=== PATIENT | female | born 1985 | race Caucasian/White ===

== ENCOUNTER 2017-12-11 08:15 | Inpatient (IN) | payer OTHER ==
[~2017-12-11] VITALS: Ht 168 cm; Wt 75.7 kg
[2017-12-11 09:02] VITALS: BP 109/74
[2017-12-11] MEDS ORDERED: FOLI0.4T4 PO (09:05)
[2017-12-11] MEDS ORDERED: PNV11TAB PO (09:05)
[2017-12-11] MEDS ORDERED: OXYTOCIN 30 UNITS/LACT RINGERS 500 ML IV PRN (09:55)
[2017-12-11] MEDS ORDERED: RINGERS SOLUTION,LACTATED 1,000 ML IV PRN (09:55)
[2017-12-11] MEDS ORDERED: OXYTOCIN 30 UNITS/LACT RINGERS 500 ML IV ONE (09:55)
[2017-12-11] MEDS ORDERED: FentaNYL CITRATE-PF 100 MCG/2 ML VIAL IVP PRN (10:00)
[2017-12-11] MEDS ORDERED: METOCLOPRAMIDE HCL 5 MG/ML 2 ML VIAL IVP PRN (10:00)
[2017-12-11] MEDS ORDERED: AZITHROMYCIN 500 MG/NS 250 ML IV ONE (10:00)
[2017-12-11] MEDS ORDERED: CITRIC ACID/SODIUM CITRATE 30 ML SOLUTION UDCUP PO PRN (10:00)
[2017-12-11] MEDS ORDERED: LIDOCAINE HCL/PF 1% 30 ML VIAL INJ PRN (10:00)
[2017-12-11] MEDS ORDERED: METHYLERGONOVINE MALEATE 0.2 MG/ML VIAL IM PRN (10:00)
[2017-12-11 10:31] LABS: BASOPHILS % (AUTO) 0.4 % (0.0-2.0); HEMATOCRIT 40.5 % (36-46); HEMOGLOBIN 13.8 g/dL (12.0-16.0); LYMPHOCYTES # (AUTO) 1.2 K/uL (1.0-4.8); LYMPHOCYTES % (AUTO) 19.8 % (22.0-44.0); MEAN CORPUSCULAR HEMOGLOBIN 30.6 pg (26.0-34.0); MEAN CORPUSCULAR HGB CONC 34.1 G/dL (31.0-37.0); MEAN CORPUSCULAR VOLUME 90 fL (80-100); MONOCYTES # (AUTO) 0.5 K/uL (0.1-1.0); MONOCYTES % (AUTO) 9.2 % (2.0-9.0); NEUTROPHILS # (AUTO) 4.1 K/uL (1.8-7.7); NEUTROPHILS % (AUTO) 68.6 % (40.0-70.0); PLATELET COUNT (AUTO)-OB 135 K/uL (150-450); RED BLOOD CELL COUNT(AUTO) 4.53 MIL/uL (4.00-5.20); RED CELL DISTRIBUTION WIDTH 14.6 % (11.5-14.5)
[2017-12-11] MEDS: RINGERS SOLUTION,LACTATED 1,000 ML IV SCH ×3 (11:04→20:17)
[2017-12-11] MEDS ORDERED: ROPIVACAINE HCL/PF 0.2% 100 ML ED ONE (16:00)
[2017-12-11] MEDS ORDERED: BUPIVACAINE HCL/PF 0.5% 10 ML VIAL ONE (16:00)
[2017-12-11] MEDS ORDERED: LIDOCAINE HCL/PF 2% 5 ML VIAL ONE (16:01)
[2017-12-11] MEDS ORDERED: ROPIVACAINE HCL/PF 0.2% 100 ML ED PRN (16:56)
[2017-12-11] MEDS ORDERED: NALBUPHINE HCL 10 MG/ML VIAL IVP PRN (17:00)
[2017-12-11] MEDS ORDERED: DiphenhydrAMINE HCL 50 MG/ML VIAL IVP PRN (17:00)
[2017-12-11] MEDS ORDERED: ONDANSETRON HCL 4 MG/2 ML VIAL IVP PRN (17:00)
[2017-12-11] MEDS ORDERED: OXYGEN THERAPY IH SCH (20:00)
[2017-12-12] MEDS ORDERED: ROPIVACAINE HCL/PF 0.2% 100 ML ED ONE (00:44)
[2017-12-12] MEDS: RINGERS SOLUTION,LACTATED 1,000 ML IV SCH (03:48)
[2017-12-12] MEDS ORDERED: LIDOCAINE HCL/PF 1% 30 ML VIAL ONE (04:34)
[2017-12-12] MEDS ORDERED: OXYTOCIN 20 UNITS/LACT RINGERS 1,000 ML IV SCH (07:39)
[2017-12-12] MEDS ORDERED: MEASLES/MUMPS/RUBELLA VACCINE, LIVE 0.5 ML/VIAL SQ ONE (07:45)
[2017-12-12] MEDS ORDERED: BENZOCAINE 20%/MENTHOL 56 GM SPRAY CANISTER TP PRN (07:45)
[2017-12-12] MEDS ORDERED: SENNA/DOCUSATE SODIUM 187-50 MG TABLET PO PRN (07:45)
[2017-12-12] MEDS ORDERED: GLYCERIN/WITCH HAZEL LEAF 40 PADS JAR TP PRN (07:45)
[2017-12-12] MEDS ORDERED: ACETAMINOPHEN/CODEINE 300-30 MG TABLET PO PRN (07:45)
[2017-12-12] MEDS ORDERED: LANOLIN 7 GM OINTMENT TP PRN (07:45)
[2017-12-12] MEDS ORDERED: MAGNESIUM HYDROXIDE SUSPENSION 30 ML UDCUP PO PRN (07:45)
[2017-12-12] MEDS ORDERED: OXYTOCIN 20 UNITS/LACT RINGERS 1,000 ML IV ONE (08:00)
[2017-12-12] MEDS: IBUPROFEN 600 MG TABLET PO PRN (08:35)
[2017-12-13] MEDS: IBUPROFEN 600 MG TABLET PO PRN ×2 (04:31→08:23)
[2017-12-13 06:36] LABS: BASOPHILS % (AUTO) 0.4 % (0.0-2.0); EOSINOPHILS % (AUTO) 2.9 % (1.0-6.0); HEMATOCRIT 32.5 % (36-46); HEMOGLOBIN 11.1 g/dL (12.0-16.0); LYMPHOCYTES % (AUTO) 15.2 % (22.0-44.0); MEAN CORPUSCULAR HEMOGLOBIN 30.6 pg (26.0-34.0); MEAN CORPUSCULAR HGB CONC 34.1 G/dL (31.0-37.0); MEAN CORPUSCULAR VOLUME 90 fL (80-100); MONOCYTES % (AUTO) 7.3 % (2.0-9.0); NEUTROPHILS # (AUTO) 9.7 K/uL (1.8-7.7); NEUTROPHILS % (AUTO) 74.2 % (40.0-70.0); PLATELET COUNT (AUTO)-OB 101 K/uL (150-450); RED BLOOD CELL COUNT(AUTO) 3.62 MIL/uL (4.00-5.20); RED CELL DISTRIBUTION WIDTH 14.7 % (11.5-14.5)
[2017-12-13] MEDS ORDERED: IBUP-2071 PO (12:04)
== END 2017-12-13 13:25 | disposition home or self-care (01) | DRG 775 ==
LOC: OBSVTOIN 08:15 → 4S 08:15
PROVIDERS: ADMIT Obstetrics & Gynecology; ATTEND Obstetrics & Gynecology
PROC: 10E0XZZ Delivery of Products of Conception, External Approach (ICD-10-PCS; principal; 2017-12-12)
PROC: 10907ZC Drainage of Amniotic Fluid, Therapeutic from Products of Conception, Via Natural or Artificial Opening (ICD-10-PCS; 2017-12-12)
PROC: 0W8NXZZ Division of Female Perineum, External Approach (ICD-10-PCS; 2017-12-12)
PROC: 3E0R3BZ Introduction of Anesthetic Agent into Spinal Canal, Percutaneous Approach (ICD-10-PCS; 2017-12-12)
PROC: 00HU33Z Insertion of Infusion Device into Spinal Canal, Percutaneous Approach (ICD-10-PCS; 2017-12-12)
DX: O77.0 Labor and delivery complicated by meconium in amniotic fluid (principal); Z37.0 Single live birth; Z3A.40 40 weeks gestation of pregnancy
CPT/HCPCS: 86850; 86900; 86901; J0456; J2590; J2795; J3010; J3490; J7120